=== PATIENT | female | born 1990 | race Caucasian/White ===

== ENCOUNTER 2017-01-27 12:36 | Emergency (ER) | payer MEDICAID ==
[~2017-01-27] VITALS: Ht 177.8 cm; Wt 91.0 kg
[~2017-01-27 12:36] MED LIST: IBUP800T PO; PHEN177L2 PO
[2017-01-27 12:39] VITALS: BP 125/87
== END 2017-01-27 14:10 | disposition home or self-care (01) ==
LOC: ED 13:15
DX: B30.1 Conjunctivitis due to adenovirus (principal); J02.0 Streptococcal pharyngitis
CPT/HCPCS: 99283

== ENCOUNTER → 2017-03-08 | Outpatient (CLI) | payer MEDICAID | END | disposition home or self-care (01) | LOC: RAD 08:43 | DX: Z01.818 Encounter for other preprocedural examination (principal) | CPT/HCPCS: 71020 ==

== ENCOUNTER 2017-05-12 17:45 | Emergency (ER) | payer OTHER, MEDICAID ==
[~2017-05-12] VITALS: Ht 170.2 cm; Wt 88.8 kg
[2017-05-12 17:50] VITALS: BP 112/74
[2017-05-12] MEDS ORDERED: KETOROLAC 30 MG/1 ML IM ONE (18:00)
[2017-05-12] MEDS ORDERED: METHOCARBAMOL 750 MG TABLET ONE (19:41)
[2017-05-12] MEDS ORDERED: KETOROLAC 30 MG/1 ML ONE (19:41)
[2017-05-12] MEDS ORDERED: METHOCARBAMOL 750 MG TABLET PO ONE (20:00)
== END 2017-05-12 19:52 | disposition home or self-care (01) ==
LOC: ED 19:40
DX: S39.012A Strain of muscle, fascia and tendon of lower back, initial encounter (principal); V48.5XXA Car driver injured in noncollision transport accident in traffic accident, initial encounter; Y93.I9 Activity, other involving external motion; Y92.488 Other paved roadways as the place of occurrence of the external cause; Y99.8 Other external cause status
CPT/HCPCS: 72072; 72110; 96372; 99284; J1885

== ENCOUNTER 2018-01-15 08:25 | Emergency (ER) | payer MEDICAID ==
[~2018-01-15] VITALS: Ht 167.6 cm; Wt 87.7 kg
[~2018-01-15 08:25] MED LIST changes: +IBUP-1223 PO; -IBUP800T PO
[2018-01-15 08:27] VITALS: BP 117/83
== END 2018-01-15 10:12 | disposition home or self-care (01) ==
LOC: ED 09:43
DX: J06.9 Acute upper respiratory infection, unspecified (principal)
CPT/HCPCS: 71046; 99284